=== PATIENT | female | born 1975 | race Caucasian/White ===

== ENCOUNTER → 2020-03-12 16:00 | Outpatient (CLI) | payer OTHER, SELFPAY ==
--- NOTE | 2020-03-11 16:00 | FLU_PTH ---
PATIENT: CELY PHAM LOC: [facility] U#:[id number] AGE/SX: 49/F ROOM: RE03/12/[address]: Dr. Karen Kan MD : [id number] BED: DIS: SPEC #: [id number] RECD: 03/12/20 17:33 STATUS: THERESE REQ #: [id number] ALEX: 03/11/20 16:[address]: Karen Kan DEPT: CYTOLOGY RECD BY: Laurie Sierra ENTERED: 03/13/20 08:42 SP TYPE: Fluid OTHR DR: MD Danika Torres Tissues: A - Thyroid gland, NOS B - Thyroid gland, NOS Procedures: Special Stain Group II Surgery Specimen Level IV Cytospin Fluid HEADER OPERATION: Ultrasound-guided fine needle aspiration left thyroid PRE-OP DIAGNOSIS: Thyroid nodules TISSUE SUBMITTED: A - Left thyroid FNA, B - Left thyroid 8 slides DIAGNOSIS CYTOLOGY A. Left thyroid nodule fluid, ultrasound-guided FNA (cytospin and cell block): Consistent with benign follicular/colloid nodule. B. Left thyroid nodule, ultrasound-guided FNA (smears): Consistent with benign follicular/colloid nodule. Adequate for evaluation. See comment. TAMIKA:nani 03/14/20 COMMENT Correlation with clinical, radiologic findings and appropriate follow up are necessary. CYTOLOGY STUDY Slides are reviewed. CYTOLOGY GROSS A - Received is 30 ml of dark brown bloody fluid labeled with the patient's name and and designated per the requisition as left thyroid. Submitted for cytology preparation including cell block. B - Received are eight smears labeled with the patient's name and designated per the requisition as left thyroid. Submitted for staining. / nani 03/13/20 TC:5 CPT: 23493, 01026, 52951
== END ==
PROVIDERS: PCP Family Medicine; Referring Provider Surgery; Visit Provider Surgery
DX: E04.2 Nontoxic multinodular goiter (principal)
CPT/HCPCS: 88108; 88305; 88313